=== PATIENT | female | born 1985 | race Caucasian/White ===

== ENCOUNTER → 2018-08-01 | Outpatient (REF) | payer OTHER | LOC: M SFHCLERA 19:36 | DX: J02.9 Acute pharyngitis, unspecified (principal) ==

== ENCOUNTER 2019-02-09 17:25 | Emergency (ER) | payer OTHER ==
[~2019-02-09] VITALS: Ht 160 cm; Wt 75.9 kg
--- NOTE | 2019-02-09 20:48 | REPVR ---
EXAM: CT Head Without Contrast EXAM DATE/TIME: 02/09/2019 8:35 PM CLINICAL HISTORY: 33 years old, female; Signs and symptoms; Altered mental status/memory loss; Amnesia, not specified TECHNIQUE: Imaging protocol: Axial computed tomography images of the head without contrast. Radiation optimization: All CT scans at this facility use at least one of these dose optimization techniques: automated exposure control; mA and/or kV adjustment per patient size (includes targeted exams where dose is matched to clinical indication); or iterative reconstruction. COMPARISON: No relevant prior studies available. FINDINGS: Brain: Normal. No hemorrhage. Unremarkable white matter. No mass effect. Ventricles: Normal. No ventriculomegaly. Bones/joints: Unremarkable. No acute fracture. Sinuses: Visualized sinuses are unremarkable. No fluid levels. Mastoid air cells: Visualized mastoid air cells are well aerated. No mastoid effusion. Soft tissues: Unremarkable. IMPRESSION: No acute intracranial abnormality. Electronically signed by: Ritesh White On 02/09/2019 20:47:44 PM
[2019-02-09 22:37] VITALS: BP 112/84
== END 2019-02-09 22:47 | disposition home or self-care (01) ==
LOC: M ED 17:25
DX: R45.0 Nervousness (principal); F41.9 Anxiety disorder, unspecified